=== PATIENT | male | born 1965 | race Caucasian/White ===

== ENCOUNTER 2020-11-25 17:43 | Emergency (ER) | payer BC, OTHER ==
[~2020-11-25] VITALS: Ht 170.2 cm; Wt 81.8 kg
[2020-11-25] MEDS ORDERED: KETOROLAC 30 MG/ML 1ML VIAL IV ONE (19:15)
[2020-11-25] MEDS ORDERED: diazePAM 10MG/2ML SYRINGE (J3360 PER 5MG) IV ONE ×2 (19:15→20:00)
[2020-11-25] MEDS ORDERED: MORPHINE 4 MG/ML 1ML VIAL/SYRINGE (J2270) IV ONE ×3 (20:40→22:20)
--- NOTE | 2020-11-26 00:56 | REPVR ---
PROCEDURE INFORMATION: Exam: MR Lumbar Spine Without Contrast Exam date and time: 11/25/2020 8:47 PM Age: 55 years old Clinical indication: Low back pain; Patient HX: Twisting injury, acute severe pain. ; Additional info: Severe low back pain TECHNIQUE: Imaging protocol: Multiplanar magnetic resonance images of the lumbar spine without intravenous contrast. COMPARISON: No relevant prior studies available. FINDINGS: Limitations: Examination is limited by motion artifact. Axial images are near uninterpretable. Vertebrae: No acute fracture. No subluxation. Edema in the anterior inferior corner of L2. Edema in the anterior superior corner of L3. Mild edema in the superior and inferior endplates of L4. Edema in the inferior endplate of L5 on the left. Small effusions in the left L3-L4 facet joint, left L4-L5 facet joint and left L5-S1 facet joint. Spinal cord: Normal signal. No cord compression. L1-L2: No significant disc disease. No significant spinal canal stenosis. No neural foraminal stenosis. L2-L3: 3 mm diffuse disc bulge. Mild spinal stenosis. Moderate right neural foraminal narrowing. Moderate left neural foraminal narrowing. L3-L4: 3 mm biforaminal disc protrusions. No spinal stenosis. Severe right neural foraminal narrowing. Moderate left neural foraminal narrowing. L4-L5: 5 mm diffuse disc bulge. Moderate spinal stenosis. Severe right neural foraminal narrowing. Severe left neural foraminal narrowing. L5-S1: 5 mm diffuse discr bulge. No spinal stenosis. Moderate right neural foraminal narrowing. Severe left neural foraminal narrowing. Soft tissues: Unremarkable. IMPRESSION: 1. Severely limited evaluation. 2. No acute fracture. 3. Degenerative changes as described. 4. Probable Modic 1 changes in the endplates. Bone contusions without fracture cannot be excluded. Electronically signed by: Angelina Maynard On 11/26/2020 00:55:43 AM
[2020-11-26] MEDS ORDERED: methylPREDNISolone 125MG 2ML VIAL IV ONE (01:30)
[2020-11-26] MEDS ORDERED: fentaNYL 100 MCG/2 ML INJECTION (J3010) IV ONE (01:30)
[2020-11-26] MEDS ORDERED: PRED20TA PO (01:31)
[2020-11-26] MEDS ORDERED: PERC5TAB12 PO (01:31)
[2020-11-26] MEDS ORDERED: NAPR-837 PO (01:31)
[2020-11-26] MEDS ORDERED: ASPE4PAD TOP (01:31)
[2020-11-26] MEDS ORDERED: METH-1164 PO (01:31)
[2020-11-26 02:32] VITALS: BP 168/94
== END 2020-11-26 02:35 | disposition home or self-care (01) ==
LOC: M ED 17:43
DX: M51.26 Other intervertebral disc displacement, lumbar region (principal); M54.5 Low back pain; R93.7 Abnormal findings on diagnostic imaging of other parts of musculoskeletal system; F17.200 Nicotine dependence, unspecified, uncomplicated
CPT/HCPCS: 72148; 94760; 96374; 96375; 96376; 99284; J1885; J2270; J2930; J3010; J3360

== ENCOUNTER → 2021-02-19 | Outpatient (CLI) | payer OTHER ==
[~2021-02-19] MED LIST: ASPE4PAD TOP; METH-1164 PO; NAPR-837 PO; PERC5TAB12 PO; PRED20TA PO
--- NOTE | 2021-02-19 11:55 | REP ---
INDICATION: LBP. COMPARISON: 11/25/2020. TECHNIQUE: Axial and sagittal sequences obtained. FINDINGS: There is some straightening of normal lordosis. Degenerative endplate signal is seen in the L2 through L5 vertebral bodies, with improving subchondral marrow edema. There is again minimal retrolisthesis of L5 on S1 unchanged. There is loss of water signal and disc degeneration at L2-3 through L5-S1 with mild disc space narrowing, unchanged. The conus is unremarkable. At L1-2 there is no significant disc bulging or herniation. There is no spinal stenosis or neural foraminal narrowing. L2-3 and L3-4 levels demonstrate mild diffuse disc bulging with stable slight impression upon the thecal sac at these levels. There are hypertrophic changes of the posterior facet joints and ligamentum flavum. There is stable mild to moderate bilateral foraminal narrowing. At L4-5 there is moderate diffuse disc bulging unchanged. There are moderate hypertrophic changes at the facets and ligamentum flavum. There is moderate central canal stenosis and bilateral foraminal narrowing unchanged. At L5-S1 there is mild diffuse disc bulging. There is a tiny central disc protrusion. There is not significant canal stenosis. There is moderate right and severe left foraminal narrowing. IMPRESSION: Degenerative disc disease as discussed in detail above, with improving subchondral marrow edema in the lumbar vertebral bodies compared to the prior study. Multiple disc bulges are noted unchanged with stable areas of canal narrowing and neural foraminal narrowing as discussed in detail above. <Electronically signed by Ezra Pino > 02/19/21 [id number]
== END ==
LOC: M RAD 07:42
PROVIDERS: ATTEND Physician Assistant
DX: M54.59 Other low back pain (principal)

== ENCOUNTER → 2023-10-16 | Outpatient (REF) | payer OTHER ==
[2023-10-16 12:50] LABS: CHOLESTEROL RISK RATIO 3.05 (<5); HDL CHOLESTEROL 33.4 MG/DL (>40); NON-HDL-C 68.6 MG/DL
== END ==
LOC: M LABDRAWC 11:29
PROVIDERS: ATTEND Physician Assistant
DX: I25.10 Atherosclerotic heart disease of native coronary artery without angina pectoris (principal)

== ENCOUNTER → 2024-06-26 | Outpatient (CLI) | payer BC | LOC: M RAD 13:58 | PROVIDERS: ATTEND Physician Assistant | DX: I65.23 Occlusion and stenosis of bilateral carotid arteries (principal) ==

== ENCOUNTER → 2025-02-07 | Outpatient (CLI) | payer BC | LOC: M RAD 11:16 | PROVIDERS: ATTEND Physician Assistant | DX: I65.23 Occlusion and stenosis of bilateral carotid arteries (principal) ==